=== PATIENT | female | born 2000 | race Two or more races ===

== ENCOUNTER 2022-03-06 14:28 | Emergency (ER) | payer BC, SELFPAY ==
--- NOTE | ~2022-03-06 | CT_ITS ---
EXAMINATION: CT ABDOMEN AND PELVIS WITH CONTRAST CLINICAL INFORMATION: RLQ pain COMPARISON: None. TECHNIQUE: Multidetector volumetric imaging was performed from the superior aspect of the liver through the pubic symphysis following administration of 85 mL Omnipaque 300 intravenous contrast. Sagittal and coronal reformatted images were obtained on the technologist workstation.. This CT examination was performed using dose optimization techniques as appropriate, variously including the following: *Automated exposure control *Adjustment of mA and/or kV according to patient size (this includes techniques or standardized protocols for targeted exams where dose is matched to indication/reason for exam; i.e. extremities or head) *Use of iterative reconstruction technique DLP: 267 mGy-cm FINDINGS: LUNG BASES: The visualized lung bases are unremarkable. LIVER, GALLBLADDER, AND BILIARY TREE: The liver is normal in size, shape, and attenuation. No focal hepatic lesion or biliary ductal dilatation is present. The gallbladder is unremarkable with no evidence of radiopaque gallstones, gallbladder wall thickening, or obvious pericholecystic inflammatory changes. PANCREAS: Unremarkable. SPLEEN: Unremarkable. ADRENAL GLANDS: Unremarkable. KIDNEYS AND URETERS: The kidneys are normal in size, shape, and attenuation. No hydronephrosis, hydroureter, or calculi seen. No perinephric stranding. BLADDER: Unremarkable. GASTROINTESTINAL TRACT: Colon is mostly decompressed but I do not appreciate any colonic wall thickening or pericolonic inflammatory change. Lack of significant intra-abdominal fat makes evaluation for small bowel difficult. Air and fluid seen within the appendix measuring up to 0.7 cm in diameter, best appreciated on the coronal reformatted images. I do not appreciate any significant periappendiceal inflammatory changes. ABDOMINAL WALL: No significant hernia is appreciated. LYMPHOVASCULAR STRUCTURES: No lymphadenopathy. The aorta is unremarkable. PELVIC VISCERA: Unremarkable. OSSEOUS STRUCTURES: Unremarkable. CT/CT abdomen pelvis w con IMPRESSION: No acute intra-abdominal process seen. The appendix is within normal limits for size with fluid and air seen within the lumen.
--- NOTE | ~2022-03-06 | US_ITS ---
EXAMINATION: US PELVIC AND TRANSVAGINAL CLINICAL INFORMATION: Right lower quadrant pain. COMPARISON: CT abdomen/pelvis done earlier the same day. TECHNIQUE: Ultrasound of the pelvis is performed using both transabdominal and transvaginal transducers along with Doppler. Transvaginal imaging is performed due to inadequate visualization transabdominally. FINDINGS: Uterus: The uterus is anteverted and measures 7.5 x 3 x 4.7 cm. The uterine volume is approximately 55.4 mL. The double wall endometrial thickness is 0.2 mm. The uterus is smooth in contour and has normal myometrial echogenicity. No visible fibroid. Adnexa: The right ovary is visualized. There is normal color flow to the right adnexa. There is no right ovarian torsion. There is a small amount of pelvic free fluid as seen on the recent CT. Right ovary measures 3.1 x 3 x 2.2 cm. The right ovarian volume is 10.7 mL. No parenchymal lesion. US/US pelvic and transvaginal IMPRESSION: 1. Sonographically unremarkable uterus, endometrium, and right ovary. Left ovary not well seen. 2. Trace pelvic free fluid.
[2022-03-06 14:39] VITALS: BP 126/75; PULSE 106; RESP 16; TEMP 37.4; O2SAT 100; BMI 19.1
[2022-03-06 16:35] LABS: MANUAL DIFF FLAG NO
[2022-03-06 16:42] LABS: Appearance Urine CLEAR; Glucose Urine UA NEG (NEG); Leukocyte Esterase Urine NEG (NEG); Nitrite Urine NEG (NEG); Specific Gravity - Urine <= 1.005 (1.005-1.025); UACC Culture Trigger NO; Urine Blood 1+ (NEG); Urine Ketones 15 MG/DL (NEG); Urine Protein NEG (NEG-TRACE)
[2022-03-06 16:43] LABS: Color Urine STRAW
[2022-03-06 16:45] LABS: UPreg QC Valid YES; Urine Pregnancy NEGATIVE (NEGATIVE)
[2022-03-06 16:51] LABS: Mucus Urine TRACE /LPF; Squamous Epithelial Cell Urine TRACE /LPF; WBC Urine 0 /HPF (0-4)
[2022-03-06 17:10] LABS: Anion Gap 15 (12-20); Blood Urea Nitrogen 10 mg/dL (9-16); Calcium 9.6 mg/dL (8.4-10.2); Carbon Dioxide 23 mmol/L (22-29); Chloride 103 mmol/L (96-108); Creatinine Clr Calc Pharmacy 72.3; Estimated Glomerular Filt Rate > 60; Glucose Random 152 mg/dL (60-115); Sodium 137 mmol/L (135-145)
--- NOTE | 2022-03-06 17:28 | ED_ITS ---
HPI - Abdominal Pain General Chief Complaint: Abdominal Pain Stated Complaint: r side abd pain Time Seen by Provider: 03/06/22 14:38 Source: patient Mode of arrival: ambulatory Limitations: no limitations History of Present Illness HPI narrative: This is a 21-year-old female presenting to the emergency department with complaints of sudden onset right lower quadrant pain that started about 4 hours ago, patient tells me the pain started suddenly in the right lower quadrant describes it as a sharp, stabbing 7/10 pain, she tells me that she is from [place] and took a [place] pain medication which helped her pain go down to 2/10. She tells me the pain is always there, she cannot tell me what makes it better or worse. She tells me that she has had no appetite and has also had nausea and 1 episode of vomiting. Patient still has her appendix and gallbladder. She has not had pain like this before. She denies fevers, chills, trauma to the area, changes in urination, chest pain, shortness of breath, wea kness, dizziness, back pain. Patient's last meal was around 13:00 MD elicited complaint: abdominal pain Pertinent past history: none Onset (ago): hour(s) (4) Location: RLQ Severity: severe Pain scale (0-10): 7 Quality: sharp Radiation: none Migration to: no migration Exacerbating factors: nothing Relieving factors: nothing Associated symptoms: nausea and vomiting Related Data Previous Rx's Medication Instructions Recorded ondansetron 4 mg disintegrating 4 mg PO ONCE PRN #10 tab 03/06/22 tablet Allergies Allergy/AdvReac Type Severity Reaction Status Date / Time No Known Allergies Allergy Verified 03/06/22 14:43 Review of Systems Review of Systems Constitutional : No Weight loss, No Fever, No Chills, No Fatigue, No Malaise ENT/Mouth : No sore throat, No Rhinorrhea Eyes: No Eye Pain, No Swelling, No Redness Cardiovascular : No Chest Pain, No SOB, No Dyspnea on Exertion, No Orthopnea, No Edema, No Palpitations Respiratory : No Cough, No Sputum, No Wheezing Gastrointestinal : + Nausea, + Vomiting, No Diarrhea, No Constipation, + abdominal Pain, No Hematochezia, No Melena Genitourinary : No Dysuria, No Urinary Frequency, No Hematuria, Musculoskeletal : No joint pain, No Myalgias, No Joint Swelling Skin : No Skin Lesions, No rash Neuro : No Weakness, No Numbness, No Dizziness, No Headache Psych : No Anxiety/Panic, No Depression All other systems reviewed and are negative Yes all other systems are reviewed and are negative [facility]LY [facility] Past Medical History Attestation statement: The following information was validated with the patient. Source: old records reviewed and nursing notes reviewed Social History Social History Advance Directives: No Advance Directives Information Provided: No Patient : No Physical Exam ED Vital Signs: Vital Signs - 24 hr 03/06/22 14:39 03/06/22 19:33 Temperature 99.3 F Pulse Rate 106 H 116 H Respiratory Rate 16 16 Blood Pressure 126/75 113/66 Pulse Oximetry 100 100 BMI result Body Mass Index 19.1 VSS Appearance: Alert.? Oriented X3.? No acute distress.? Head: Normocephalic, atraumatic, no step-offs or deformities Eyes: Pupils equal, round and reactive to light.? ENT: Pharynx normal.? Neck: Normal inspection.? Neck supple.? CVS: Normal heart rate and rhythm.? Pulses normal.? Respiratory: No respiratory distress.? Breath sounds normal.? Abdomen: Soft and + pain to RLQ, + [place], Mcburneys point, psoas.? Skin: Skin warm and dry.? Normal skin color.? Normal skin turgor.? Extremities: No lower extremity edema.? No calf ttp. 5/5 strength to bilateral upper and lower extremities Back: No midline tenderness, no C-spine tenderness, full range of motion, no CVA tenderness bilaterally Neuro: Oriented X 3.? No motor deficit.? No sensory deficit. CN 2-12 intact Course Reevaluation(s) Reevaluation #1: Patient noted to have slight leukocytosis, no acute electrolyte abnormalities requiring intervention urine clean for infection. Pending CT of the abdomen pelvis with contrast to rule out appendicitis, obstructing uropathy. Time: 18:20 Reevaluation #2: Will reach out to surgery [facility] consultant Dr. Rios to discuss CT results. Time: 18:57 Reevaluation #3: Spoke to Dr. Rios unlikley acute appendicitis. Tells me that air in the appendix is okay. Plan at this time is pain management. Will discharge patient home with strict return precautions. Time: 19:02 Additional Reevaluation(s): 2237 Ultrasound is no sonographic evidence of torsion however they did have difficulty visualizing the left ovary, right ovary with normal flow, sonographic ally unremarkable uterus, endometrium. There is trace pelvic free fluid. Patient's pain is mostly on the right-hand side, very low suspicion for torsion on left. Patient reports pain improved. Patient reports improvement after pain medicine. I went over CT results and ultrasound results with patient and went over her lab work with her. Upon re- evaluation patient has no tenderness to palpation to left or right lower quadrant. Negative psoas and obturator. At this time unlikely appendicitis, and torsion. However I did educate patient on strict return precautions and when to return. Outlined these on her discharge. At this time I feel comfortable with discharge home with prompt PCP follow-up I also gave her follow-up with general surgery. Comfortable with discharge home with very strict return precautions. Upon discharge patient did verbalize her understanding of the return precautions. MDM - Abdominal Pain MDM Narrative Medical decision making narrative: [birth year] 21 yo f presents with acute onset right lower quadrant pain x4 hours with associated anorexia, nausea and 1 episode of vomiting. No previous abdominal surgeries. Last meal around 13:00. Physical examination with a positive Rovsing, psoas, McBurney's point. Normoactive bowel sounds. Abdomen soft nondistended. Regular rate rhythm. Lungs clear. Neuro nonfocal. Vital signs stable. Patient does not appear to be in any acute distress. No signs of acute abdomen. Plan at this time is labs, urine and CT of the abdomen and pelvis to rule out appendicitis. Unlikely that this is cholecystitis or pancreatitis Medical Records Attestation: I reviewed the patient's medical records. Lab Data Attestation: I reviewed the patient's lab results. Result diagrams: 03/06/22 16:25 03/06/22 16:25 Labs: Lab Results 03/06/22 03/06/22 03/06/22 Range/Units 16:25 16:25 16:30 WBC 11.2 H (4.8-10.8) X10*3/uL RBC 4.92 (4.20-5.50) X10*6/uL Hgb 12.9 (12.0-16.0) g/dl Hct 39.3 (37.0-47.0) % MCV 79.9 L (80.0-98.0) fL MCH 26.2 L (27.0-33.0) pg MCHC 32.8 (31.0-35.0) g/dl RDW 13.4 (11.0-16.0) % Plt Count 297 (160-400) X10*3/uL MPV 10.0 (9.4-12.3) fL Immature Gran % (Auto) 0.3 (0.0-0.4) % Neut % (Auto) 88.8 H (45-73) % Lymph % (Auto) 4.8 L (20-40) % [place] % (Auto) 5.0 (2-11) % Eos % (Auto) 0.8 (0-4) % Baso % (Auto) 0.3 (0-2) % Lymph # (Auto) 0.5 L (1.2-4.9) X10*3/uL [place] # (Auto) 0.6 (0.1-1.2) X10*3/uL Eos # (Auto) 0.1 (0.0-0.4) X10*3/uL Baso # (Auto) 0.0 (0.0-0.2) X10*3/uL Abs Immat Gran (auto) 0.03 (0.00-0.03) X10*3/uL Absolute Neuts (auto) 10.0 H (2.0-8.3) x10*3/uL Absolute Nucleated RBC 0.000 (0.0-0.012) X10*3/uL Nucleated RBC % (auto) 0.0 (0.0-0.2) /100WBC Sodium 137 (135-145) mmol/L Potassium 4.0 (3.3-5.1) mmol/L Chloride 103 (96-108) mmol/L Carbon Dioxide 23 (22-29) mmol/L Anion Gap 15 (12-20) BUN 10 (9-16) mg/dL Creatinine 0.85 (0.5-1.4) mg/dL Estim Creat Clear Calc 72.3 Estimated GFR > 60 Random Glucose 152 H (60-115) mg/dL Calcium 9.6 (8.4-10.2) mg/dL AST 21 (5-31) U/L ALT 13 (0-31) U/L Lipase 14 (8-78) U/L Urine Color STRAW Urine Appearance CLEAR Urine pH 6.0 (5.0-8.0) Ur Specific [place] <= 1.005 (1.005-1.025) Urine Protein NEG (NEG-TRACE) MG/DL Urine Glucose (UA) NEG (NEG) MG/DL Urine Ketones 15 (NEG) MG/DL Urine Blood 1+ H (NEG) Urine Nitrite NEG (NEG) Ur Leukocyte Esterase NEG (NEG) Urine RBC 1-4 (0) /HPF Urine WBC 0 (0-4) /HPF Ur Squamous Epith Cells TRACE /LPF Urine Bacteria NONE /LPF Urine Mucus TRACE /LPF Urine Test (NEGATIVE) 03/06/22 Range/Units 16:30 WBC (4.8-10.8) X10*3/uL RBC (4.20-5.50) X10*6/uL Hgb (12.0-16.0) g/dl Hct (37.0-47.0) % MCV (80.0-98.0) fL MCH (27.0-33.0) pg MCHC (31.0-35.0) g/dl RDW (11.0-16.0) % Plt Count (160-400) X10*3/uL MPV (9.4-12.3) fL Immature Gran % (Auto) (0.0-0.4) % Neut % (Auto) (45-73) % Lymph % (Auto) (20-40) % [place] % (Auto) (2-11) % Eos % (Auto) (0-4) % Baso % (Auto) (0-2) % Lymph # (Auto) (1.2-4.9) X10*3/uL [place] # (Auto) (0.1-1.2) X10*3/uL Eos # (Auto) (0.0-0.4) X10*3/uL Baso # (Auto) (0.0-0.2) X10*3/uL Abs Immat Gran (auto) (0.00-0.03) X10*3/uL Absolute Neuts (auto) (2.0-8.3) x10*3/uL Absolute Nucleated RBC (0.0-0.012) X10*3/uL Nucleated RBC % (auto) (0.0-0.2) /100WBC Sodium (135-145) mmol/L Potassium (3.3-5.1) mmol/L Chloride (96-108) mmol/L Carbon Dioxide (22-29) mmol/L Anion Gap (12-20) BUN (9-16) mg/dL Creatinine (0.5-1.4) mg/dL Estim Creat Clear Calc Estimated GFR Random Glucose (60-115) mg/dL Calcium (8.4-10.2) mg/dL AST (5-31) U/L ALT (0-31) U/L Lipase (8-78) U/L Urine Color Urine Appearance Urine pH (5.0-8.0) Ur Specific [place] (1.005-1.025) Urine Protein (NEG-TRACE) MG/DL Urine Glucose (UA) (NEG) MG/DL Urine Ketones (NEG) MG/DL Urine Blood (NEG) Urine Nitrite (NEG) Ur Leukocyte Esterase (NEG) Urine RBC (0) /HPF Urine WBC (0-4) /HPF Ur Squamous Epith Cells /LPF Urine Bacteria /LPF Urine Mucus /LPF Urine Test NEGATIVE (NEGATIVE) Critical Care Time Critical Care Time Critical Care Time: Yes Total Critical Care Time: 35 Attestation: I attest to this time spent taking care of the patient, obtaining history, physical, reviewing labs, imaging, speaking to my attending, speaking to specialist. Discharge Plan Discharge Clinical Impression: Abdominal pain, Nausea & vomiting Patient Disposition: Home, Self-Care Instructions: Acute Nausea and Vomiting (ED), Abdominal Pain (ED) Additional Instructions: Take your medications as prescribed. If you were prescribed antibiotics today, it is important that you take your medication to their entirety, do not skip any doses, do not finish them early. Follow-up with your primary care provider this week. If your pain persists please follow-up with general surgery. Follow-up with an OBGYN provider. Return to the emergency department with new or worsening symptoms. Such as fevers, chills, chest pain, shortness of breath, nausea, vomiting, dizziness, headache, vision changes, lethargy, worsening abdominal pain, not eating or drinking, changes with urination if these occur he should report immediately In case of emergency call 911 CT/CT abdomen pelvis w con IMPRESSION: No acute intra-abdominal process seen. The appendix is within normal limits for size with fluid and air seen within the lumen. US/US pelvic and transvaginal IMPRESSION: 1. Sonographically unremarkable uterus, endometrium, and right ovary. Left ovary not well seen. ? 2. Trace pelvic free fluid. Prescriptions: New ondansetron 4 mg tablet,disintegrating 4 mg PO ONCE PRN (Reason: nausea and vomiting) Qty: 10 0RF Referrals: Arnold Rios MD [Physician] - 2 days Physician,None [Primary Care Provider] - 2 days Georgi Hernandez MD [Physician] - 1 week Stand Alone Forms: Work/School Release
[2022-03-06 17:53] LABS: Alanine Aminotransferase 13 U/L (0-31); Aspartate Amino Transferase 21 U/L (5-31); Basophils Percent Auto 0.3 % (0-2); Eosinophils Absolute Auto 0.1 X10*3/uL (0.0-0.4); Eosinophils Percent Auto 0.8 % (0-4); Hematocrit 39.3 % (37.0-47.0); Hemoglobin 12.9 g/dl (12.0-16.0); Imm Gran Abs Auto 0.03 X10*3/uL (0.00-0.03); Imm Gran Pct Auto 0.3 % (0.0-0.4); Lipase 14 U/L (8-78); Lymphocytes Absolute Auto 0.5 X10*3/uL (1.2-4.9); Lymphocytes Percent Auto 4.8 % (20-40); Mean Corpuscular HGB Conc 32.8 g/dl (31.0-35.0); Mean Corpuscular Hemoglobin 26.2 pg (27.0-33.0); Mean Corpuscular Volume 79.9 fL (80.0-98.0); Monocytes Absolute Auto 0.6 X10*3/uL (0.1-1.2); Neutrophils Percent Auto 88.8 % (45-73); Platelet Count 297 X10*3/uL (160-400); Red Blood Count 4.92 X10*6/uL (4.20-5.50); Red Cell Distribution Width 13.4 % (11.0-16.0); White Blood Count 11.2 X10*3/uL (4.8-10.8)
[2022-03-06] MEDS: iohexoL 350 MG/ML 100 ML INFUS..BTL IV (18:26)
--- NOTE | 2022-03-06 19:10 | PC.NURSE ---
Took report from Rose to assume care of Pt.
[2022-03-06] MEDS: Morphine Sulfate 2 MG/ML CARTRIDGE IVPUSH (19:31)
[2022-03-06 19:33] VITALS: BP 113/66; PULSE 116; RESP 16; O2SAT 100
[2022-03-06 22:43] VITALS: BP 131/70; PULSE 136; RESP 18; TEMP 38.6; O2SAT 98
[2022-03-06] MEDS: Acetaminophen 325 MG TABLET 975 MG PO (23:08)
[2022-03-06 23:09] LABS: COVID-19 Test Positive (Negative); IDNOW Serial# 16C4AD1C
[2022-03-06 23:14] LABS: Influenza A Negative (Negative); Influenza B2 Negative (Negative)
[2022-03-06 23:28] LABS: Strep A Nucleic Acid Negative (Negative)
== END 2022-03-06 23:40 | disposition home or self-care (01) ==
PROVIDERS: Physician Assistant; Emergency Provider Emergency Medicine Emergency Medical Services
DX: U07.1 COVID-19 (principal); R11.2 Nausea with vomiting, unspecified; R10.31 Right lower quadrant pain
CPT/HCPCS: 36415; 74177; 76830; 76856; 80048; 81001; 81025; 83690; 84450; 84460; 85025; 87502; 87635; 87651; 96374; 99284; 99291; J2270; Q9967

== ENCOUNTER 2023-06-06 18:09 | Emergency (ER) | payer BC, SELFPAY ==
--- NOTE | ~2023-06-06 | CT_ITS ---
EXAMINATION: CT ABDOMEN AND PELVIS WITHOUT CONTRAST CLINICAL INFORMATION: Lower abdominal pain COMPARISON: 03/06/2022 TECHNIQUE: Multidetector volumetric imaging was performed from the superior aspect of the liver through the pubic symphysis. Sagittal and coronal reformatted images were obtained on the technologist's workstation. This CT examination was performed using dose optimization techniques as appropriate, variously including the following: *Automated exposure control *Adjustment of mA and/or kV according to patient size (this includes techniques or standardized protocols for targeted exams where dose is matched to indication/reason for exam; i.e. extremities or head) *Use of iterative reconstruction technique DLP: 272 mGy-cm FINDINGS: LUNG BASES: The visualized lung bases are unremarkable. LIVER, GALLBLADDER, AND BILIARY TREE: The liver is normal in size, shape, and attenuation. No focal hepatic lesion or biliary ductal dilatation is present. The gallbladder is unremarkable with no evidence of radiopaque gallstones, gallbladder wall thickening, or obvious pericholecystic inflammatory changes. PANCREAS: Unremarkable. SPLEEN: Unremarkable. ADRENAL GLANDS: Unremarkable. KIDNEYS AND URETERS: The kidneys are normal in size, shape, and attenuation. No hydronephrosis, hydroureter, or calculi seen. No perinephric stranding. BLADDER: Unremarkable. GASTROINTESTINAL TRACT: The small and large bowel are unremarkable. No evidence of appendicitis. ABDOMINAL WALL: No significant hernia is appreciated. LYMPH NODES: Normal. VASCULAR: Unremarkable. PELVIC VISCERA: Uterus and adnexa unremarkable. Small pelvic free fluid is within normal limits in a female of reproductive age. OSSEOUS STRUCTURES: Unremarkable. CT/CT abdomen pelvis wo IV con IMPRESSION: No acute findings within the abdomen or pelvis to explain the patient's symptomatology.
[2023-06-06 18:44] VITALS: BP 103/63; PULSE 91; RESP 16; TEMP 36.7; O2SAT 98; BMI 18.9
--- NOTE | 2023-06-06 20:24 | ED_ITS ---
HPI - Abdominal Pain General Chief Complaint: Abdominal Pain Stated Complaint: abd pain Time Seen by Provider: 06/07/23 01:15 Source: patient and RN notes reviewed Mode of arrival: ambulatory Limitations: no limitations History of Present Illness HPI narrative: 23-year-old female presents for evaluation of abdominal pain Patient reports her symptoms are lower abdominal pain and she describes it mostly as ?pressure when I go to urinate. ? Denies any burning with urination or urinary frequency Denies Nausea, vomiting, diarrhea, constipation Vaginal bleeding or discharge. Denies any new sexual partners or concern for sexually transmitted infections Patient reports similar episode that was diagnosed with a UTI so she wanted to get checked for UTI Blunt bowel movement was yesterday and it was ?normal. ? Related Data Previous Rx's Medication Instructions Recorded ondansetron 4 mg disintegrating 4 mg PO ONCE PRN nausea and 03/06/22 tablet vomiting #10 tabs phenazopyridine 200 mg tablet 200 mg PO TID 6 doses #6 tabs 06/07/23 (Pyridium) Allergies Allergy/AdvReac Type Severity Reaction Status Date / Time No Known Allergies Allergy Verified 03/06/22 14:43 Review of Systems Constitutional: Reports as per HPI, Denies chills, Denies fatigue, Denies fever(s) and Denies headache(s) Denies headache(s) Cardiovascular: Denies chest pain and Denies dyspnea Respiratory: Denies cough and Denies dyspnea Gastrointestinal: Denies constipation and Denies vomiting Genitourinary: Denies dysuria, Denies pelvic pain, Denies urinary incontinence, Denies urinary hesitancy and Denies vaginal pruritus Denies headache(s) and Denies focal weakness Endocrine: Denies fatigue PMFSH Social History Social History Advance Directives: No Advance Directives Information Provided: Yes Physical Exam ED Vital Signs: Vital Signs - 24 hr 06/06/23 18:44 Temperature 98.0 F Pulse Rate 91 Respiratory Rate 16 Blood Pressure 103/63 Pulse Oximetry 98 Oxygen Delivery Method Room Air BMI result Body Mass Index 18.9 Const General: healthy appearing, comfortable, no acute distress, alert and awake Nutritional Appearance: well nourished Orientation/consciousness: patient oriented x3 HENMT Head: Yes normocephalic and Yes atraumatic Eyes Eyelids: Yes eyelids normal Conjunctivae: conjunctivae normal Sclerae: sclerae normal Corneas: corneas normal Pupils: Equal, round and reactive pupils present EOM: EOMs intact bilaterally Neck Neck: Yes full ROM Resp Effort & Inspection: normal respiratory effort, able to speak in complete sentences and not labored GI Inspection: No distended Palpation (GI): Soft to palpation, not firm, nontender, no guarding and not rigid Auscultation: normoactive bowel sounds Skin General skin exam: no rashes or lesions noted and elasticity normal Neuro General: patient oriented x3 Cranial nerves: Yes Equal, round and reactive pupils present and Yes Bilaterally intact EOM present Cognition (Neuro): normal cognition Extrem Other: Moving all extremities well without any obvious deformities Course Course Course Narrative: This is an RME: Additional HPI, ROS, PE not included below will be deferred to primary provider. 23-year-old female presents with lower abdominal pain since yesterday with associated nausea, pain is constant, she says it started off is excruciating pain now improving however not going away. Patient does not think she is . She still has her appendix. She says she has had pain like this in the past. Plan labs, imaging, urine. Medical Decision Making Medical Decision Making [facility] Narrative: 23-year-old female presents for evaluation of abdominal pain. Her workup from triage will labs, UA and CT scan of the abdomen pelvis all of which was unremarkable. Patient's UA was clear. Her physical exam is reassuring. I did discuss potential pelvic examination with the patient but she denies any concerns for STIs and declines at this time. She was treated with Pyridium for urinary pressure and will follow up with the PCP Differential Diagnosis Differential Diagnoses: The differential diagnosis associated with the presentation includes Abdominal pain UTI STI Gonorrhea Chlamydia Ovarian cyst Constipation Lab Data [facility] Lab Attestation statement: I reviewed the patient's lab results. No leukocytosis or left shift. No significant anemia. Chemistries without any clinically significant electrolyte abnormalities. Normal sodium, potassium, chloride. HCG undetectable. Renal function. UA without any signs of infection. 06/06/23 20:16 06/06/23 20:16 Labs: Lab Results 06/06/23 06/06/23 06/06/23 Range/Units 20:16 20:16 20:16 WBC 9.0 (4.8-10.8) X10*3/uL RBC 5.10 (4.20-5.50) X10*6/uL Hgb 14.6 (12.0-16.0) g/dl Hct 44.0 (37.0-47.0) % MCV 86.3 (80.0-98.0) fL MCH 28.6 (27.0-33.0) pg MCHC 33.2 (31.0-35.0) g/dl RDW 12.2 (11.0-16.0) % Plt Count 266 (160-400) X10*3/uL MPV 9.2 L (9.4-12.3) fL Immature Gran % (Auto) 0.3 (0.0-0.4) % Neut % (Auto) 71.6 (45-73) % Lymph % (Auto) 19.9 L (20-40) % [place] % (Auto) 5.8 (2-11) % Eos % (Auto) 2.2 (0-4) % Baso % (Auto) 0.2 (0-2) % Lymph # (Auto) 1.8 (1.2-4.9) X10*3/uL [place] # (Auto) 0.5 (0.1-1.2) X10*3/uL Eos # (Auto) 0.2 (0.0-0.4) X10*3/uL Baso # (Auto) 0.0 (0.0-0.2) X10*3/uL Abs Immat Gran (auto) 0.03 (0.00-0.03) X10*3/uL Absolute Neuts (auto) 6.5 (2.0-8.3) x10*3/uL Absolute Nucleated RBC 0.000 (0.0-0.012) X10*3/uL Nucleated RBC % (auto) 0.0 (0.0-0.2) /100WBC Sodium 138 (135-145) mmol/L Potassium 4.0 (3.3-5.1) mmol/L Chloride 104 (96-108) mmol/L Carbon Dioxide 23 (22-29) mmol/L Anion Gap 15 (12-20) BUN 8 L (9-16) mg/dL Creatinine 0.72 (0.5-1.4) mg/dL Estim Creat Clear Calc 82.9 Estimated GFR > 60 Random Glucose 91 (60-115) mg/dL Calcium 9.8 (8.4-10.2) mg/dL Total Bilirubin 0.7 (0.0-1.0) mg/dL AST 17 (5-31) U/L ALT 11 (0-31) U/L Alkaline Phosphatase 67 (39-117) U/L Total Protein 8.1 H (6.5-8.0) g/dL Albumin 4.4 (3.5-5.0) g/dL Lipase 11 (8-78) U/L Beta HCG, Quant < 2 mIU/mL Urine Color Yellow Urine Appearance Clear Urine pH 6.5 (5.0-9.0) Ur Specific [place] <= 1.005 (1.005-1.025) Urine Protein Negative (Neg-Trace) mg/dL Urine Glucose (UA) Negative (Negative) mg/dL Urine Ketones Negative (Negative) mg/dL Urine Blood Negative (Negative) Urine Nitrite Negative (Negative) Ur Leukocyte Esterase Negative (Negative) Discharge Plan Discharge Clinical Impression: Abdominal pain Patient Disposition: Home, Self-Care Instructions: Abdominal Pain (ED) Additional Instructions: Your workup in the emergency department today was reassuring. This includes your blood work, urine sample, CT scan of the abdomen pelvis You did have mild constipation but no severe constipation on CT scan You may use the Pyridium to help with a urinary discomfort Follow-up with an OBGYN doctor if her symptoms persist Prescriptions: New phenazopyridine [Pyridium] 200 mg tablet 200 mg PO TID Qty: 6 0RF No Action ondansetron 4 mg tablet,disintegrating 4 mg PO ONCE PRN (Reason: nausea and vomiting) Qty: 10 0RF
[2023-06-06 20:25] LABS: MANUAL DIFF FLAG NO
[2023-06-06 20:28] LABS: Appearance Urine Clear; Color Urine Yellow; Glucose Urine UA Negative (Negative); Leukocyte Esterase Urine Negative (Negative); Nitrite Urine Negative (Negative); PH 6.5 (5.0-9.0); Specific Gravity - Urine <= 1.005 (1.005-1.025); Urine Blood Negative (Negative); Urine Ketones Negative (Negative); Urine Protein Negative (Neg-Trace)
[2023-06-06 20:36] LABS: Basophils Percent Auto 0.2 % (0-2); Eosinophils Absolute Auto 0.2 X10*3/uL (0.0-0.4); Eosinophils Percent Auto 2.2 % (0-4); Hemoglobin 14.6 g/dl (12.0-16.0); Imm Gran Abs Auto 0.03 X10*3/uL (0.00-0.03); Imm Gran Pct Auto 0.3 % (0.0-0.4); Lymphocytes Absolute Auto 1.8 X10*3/uL (1.2-4.9); Lymphocytes Percent Auto 19.9 % (20-40); Mean Corpuscular HGB Conc 33.2 g/dl (31.0-35.0); Mean Corpuscular Hemoglobin 28.6 pg (27.0-33.0); Mean Corpuscular Volume 86.3 fL (80.0-98.0); Mean Platelet Volume 9.2 fL (9.4-12.3); Monocytes Absolute Auto 0.5 X10*3/uL (0.1-1.2); Monocytes Percent Auto 5.8 % (2-11); Neutrophils Absolute Auto 6.5 x10*3/uL (2.0-8.3); Neutrophils Percent Auto 71.6 % (45-73); Platelet Count 266 X10*3/uL (160-400); Red Cell Distribution Width 12.2 % (11.0-16.0)
[2023-06-06 20:51] LABS: Alanine Aminotransferase 11 U/L (0-31); Albumin Level 4.4 g/dL (3.5-5.0); Alkaline Phosphatase 67 U/L (39-117); Anion Gap 15 (12-20); Aspartate Amino Transferase 17 U/L (5-31); Bilirubin Total 0.7 mg/dL (0.0-1.0); Blood Urea Nitrogen 8 mg/dL (9-16); Calcium 9.8 mg/dL (8.4-10.2); Carbon Dioxide 23 mmol/L (22-29); Chloride 104 mmol/L (96-108); Creatinine Clr Calc Pharmacy 82.9; Estimated Glomerular Filt Rate > 60; Glucose Random 91 mg/dL (60-115); Lipase 11 U/L (8-78); Sodium 138 mmol/L (135-145); Total Protein 8.1 g/dL (6.5-8.0)
[2023-06-06 20:57] LABS: HCG Quantitative < 2 mIU/mL
== END 2023-06-07 01:38 | disposition home or self-care (01) ==
PROVIDERS: Physician Assistant; Emergency Provider Emergency Medicine
DX: R10.30 Lower abdominal pain, unspecified (principal)
CPT/HCPCS: 36415; 74176; 80053; 81003; 83690; 84702; 85025; 99282; 99284